=== PATIENT | male | born 1985 | race Caucasian/White ===

== ENCOUNTER → 2023-04-14 10:07 | Outpatient (CLI) | payer BC, SELFPAY ==
--- NOTE | ~2023-04-14 | US_ITS ---
US scrotum doppler INDICATION: Malignant neoplasm of undescended testicle TECHNIQUE: Testicular sonogram utilizing grayscale and color Doppler FINDINGS: The right testicle is surgically absent. Left testicle measures 4.3 x 1.9 x 3.2 cm. There i s a 1.1 cm mass inferior laterally with internal vascularity. There is an ill-defined hypoechoic mass posteriorly measuring 1.2 cm with internal vascularity. The epididymis is unremarkable on the left. No hydrocele. IMPRESSION: 1. Left testicular masses, largest measuring 12 mm, suspicious for testicular malignancy until prove n otherwise. Reviewed, dictated and finalized at location B. IMPRESSION: 1. Left testicular masses, largest measuring 12 mm, suspicious for testicular malignancy until proven otherwise.
== END ==
PROVIDERS: PCP Urology
DX: C62.00 Malignant neoplasm of unspecified undescended testis (principal); N50.89 Other specified disorders of the male genital organs
CPT/HCPCS: 76870; 93976